=== PATIENT | female | born 1955 | race Caucasian/White ===

== ENCOUNTER → 2017-08-06 | Outpatient (CLI) | payer BC ==
[~2017-08-06] MED LIST: AMOXICILLIN 8751 TAB PO; ASPIR-LOW81 MG PO; CALTRATE 600 +1 TAB PO; CARAFATE 1GM1 G PO; COREG 3.123.125 MG/T PO; CORGARD 40M40 MG/TAB; CORGARD 40M40 MG/TAB PO; CYMBALTA 30MG30 MG PO; DICLOFENAC; FISH OIL1 IU PO; FLECAINIDE PO; FLEXERIL 1010 MG/TAB PO; IMIPRAMINE; LEVOTHYROXIN0.025 M1 PO; LEVOTHYROXINE0.05 M1 PO; MACRODANTIN50 MG/CA1 PO; MOBIC15 MG PO; MUCINEX600 M1 PO; MULTI VITAMINS1 TAB PO; MVI PO; NADOLOL; NEURONTIN100 MG/CAP PO; NITROSTAT0.4 MG/TAB SL; NORVASC 10MG10 MG PO; PEPTO BISMOL PO; PRAVACHOL 20MG20 MG PO; PRAVACHOL 40MG40 MG PO; PREDNISONE20 MG PO; PREVACID 30MG30 MG PO; PRILOSEC 20MG20 MG PO; SURMONTIL PO; SYNTHROID0.088 MG/T PO; TEMAZEPAM15 MG PO; TOFRANIL 25MG T25 MG PO; TYLENOL W/COD1 UDTAB PO; VALIUM 5MG T5 MG/TAB PO; VITAMIN B COMPL1 T16 PO; WELLBUTRIN SR150 M1 PO; WELLBUTRIN XL300 M1 PO; WELLBUTRIN XL300 MG PO; ZOCOR 20MG20 MG PO; [UNRECOGNIZED DRUG - OTHER] PO
== END ==
LOC: MC.RAD 14:40
DX: Z12.31 Encounter for screening mammogram for malignant neoplasm of breast (principal)

== ENCOUNTER → 2018-11-17 | Outpatient (CLI) | payer MEDICARE, OTHER | LOC: MC.RAD 13:39 | DX: Z12.31 Encounter for screening mammogram for malignant neoplasm of breast (principal) ==

== ENCOUNTER 2018-11-30 14:30 | Outpatient (RCR) | payer MEDICARE, OTHER | END 2019-01-02 | disposition home or self-care (01) | LOC: WSST | DX: G20 Parkinson's disease (principal) | CPT/HCPCS: G8978-GP; G8979-GP ==

== ENCOUNTER → 2018-11-30 | Outpatient (CLI) | payer MEDICARE, OTHER | LOC: COL.RAD 14:04 | DX: G20 Parkinson's disease (principal); R13.10 Dysphagia, unspecified ==

== ENCOUNTER → 2019-03-15 | Outpatient (CLI) | payer MEDICARE, OTHER | LOC: COL.RAD 14:16 | DX: K21.9 Gastro-esophageal reflux disease without esophagitis (principal); K22.8 Other specified diseases of esophagus ==

== ENCOUNTER 2019-07-17 13:37 | Outpatient (RCR) | payer MEDICARE, OTHER | END 2019-10-15 | disposition home or self-care (01) | LOC: WSST | DX: F03.90 Unspecified dementia, unspecified severity, without behavioral disturbance, psychotic disturbance, mood disturbance, and anxiety (principal) ==

== ENCOUNTER → 2019-10-18 | Outpatient (CLI) | payer MEDICARE, OTHER | LOC: COL.PUL 12:50 | DX: R06.09 Other forms of dyspnea (principal) ==

== ENCOUNTER → 2019-11-27 | Outpatient (CLI) | payer MEDICARE, OTHER | LOC: MC.RAD 12:32 | DX: Z12.31 Encounter for screening mammogram for malignant neoplasm of breast (principal) ==

== ENCOUNTER 2020-04-01 12:48 | Outpatient (RCR) | payer MEDICARE, OTHER | END 2020-06-30 | disposition home or self-care (01) | LOC: MKS.ESL.PT | DX: M25.511 Pain in right shoulder (principal) ==

== ENCOUNTER 2020-07-08 19:12 | Emergency (ER) | payer MEDICARE, OTHER ==
[2009-01-04 13:16] VITALS: BP 130/77
[~2020-07-08] VITALS: Ht 157.5 cm; Wt 77.3 kg
[2020-07-08 19:57] VITALS: BP 101/68; TEMP 97.1
[2020-07-08 20:48] VITALS: PULSE 72
== END 2020-07-08 20:45 | disposition home or self-care (01) ==
LOC: COL.ER 19:12
DX: M54.32 Sciatica, left side (principal); G43.909 Migraine, unspecified, not intractable, without status migrainosus; M79.7 Fibromyalgia; Z90.710 Acquired absence of both cervix and uterus; Z88.8 Allergy status to other drugs, medicaments and biological substances

== ENCOUNTER → 2021-05-21 | Outpatient (CLI) | payer MEDICARE | LOC: MC.RAD 13:08 | DX: Z12.31 Encounter for screening mammogram for malignant neoplasm of breast (principal) ==

== ENCOUNTER → 2022-07-20 | Outpatient (CLI) | payer MEDICARE | LOC: MC.RAD 14:00 | DX: Z12.31 Encounter for screening mammogram for malignant neoplasm of breast (principal) ==

== ENCOUNTER → 2024-04-27 | Outpatient (CLI) | payer MEDICARE | LOC: MC.RAD 03-16 14:30 | DX: Z12.31 Encounter for screening mammogram for malignant neoplasm of breast (principal) ==

== ENCOUNTER 2024-08-12 14:22 | Emergency (ER) | payer MEDICARE ==
[~2024-08-12] VITALS: Ht 157.5 cm; Wt 79.5 kg
[2024-08-12 14:41] VITALS: TEMP 98.5
[2024-08-12 18:28] VITALS: BP 124/88; PULSE 75
== END 2024-08-12 18:28 | disposition home or self-care (01) ==
LOC: COL.ER 14:22
DX: S60.221A Contusion of right hand, initial encounter (principal); S50.311A Abrasion of right elbow, initial encounter; S80.211A Abrasion, right knee, initial encounter; W18.39XA Other fall on same level, initial encounter